=== PATIENT | female | born 1955 | race Caucasian/White ===

== ENCOUNTER 2025-02-18 11:23 | Emergency (ER) | payer MEDICARE | END 2025-02-18 13:23 | disposition home or self-care (01) | LOC: CSHERS 11:23 | DX: J18.9 Pneumonia, unspecified organism (principal); I10 Essential (primary) hypertension; Z79.899 Other long term (current) drug therapy; J20.9 Acute bronchitis, unspecified | CPT/HCPCS: 71045; 71046; 93005; 93010; J7512 ==

== ENCOUNTER 2025-02-20 04:50 | Emergency (ER) | payer MEDICARE | END 2025-02-20 06:18 | disposition home or self-care (01) | LOC: CSHERS 04:50 | DX: J18.9 Pneumonia, unspecified organism (principal); I45.10 Unspecified right bundle-branch block; I10 Essential (primary) hypertension; Z79.899 Other long term (current) drug therapy | CPT/HCPCS: 71046; 93005 ==

== ENCOUNTER 2025-02-21 23:15 | Inpatient (IN) | payer MEDICARE ==
[~2025-02-21 23:15] MED LIST: Iopamidol 370 76% 100 ML VIAL ONE
[2025-02-21 23:48] LABS: #Basophils 0.07 10x3/uL (0.0-0.2); #Eosinophils 0.10 10x3/uL (0.0-0.5); #Monocytes 0.75 10x3/uL (0.0-1.1); #Neutrophils 7.94 10x3/uL (1.5-8.4); %Basophils 0.7 % (0.0-2.0); %Eosinophils 1.0 % (0.0-6.0); %Lymphocytes 15.3 % (18.0-47.0); %Monocytes 7.1 % (0.0-10.0); %Neutrophils 75.7 % (40.0-75.0); Hematocrit 42.9 % (34.9-44.5); Hemoglobin 14.5 g/dL (12.0-15.5); Mean Corpuscular Hemoglobin 27.5 pg (27.0-33.0); Mean Corpuscular Volume 81.3 fL (81.6-98.3); Platelet Count 277 10x3/uL (150-450); Red Blood Cell (RBC) Count 5.28 10x6/uL (3.90-5.03); White Blood Cell (WBC) Count 10.49 10x3/uL (3.5-10.5)
[2025-02-22 00:23] LABS: ALT (SGPT) 43 U/L (Less than 34); AST (SGOT) 36 U/L (11-34); Albumin 4.1 g/dL (3.1-4.5); Alkaline Phosphatase 61 U/L (40-110); Anion Gap 13 mmol/L (10-20); BUN (Urea Nitrogen) 8 mg/dL (9.8-20.1); Bilirubin, Total 0.8 mg/dL (0.3-1.2); Calc. Creatinine Clearance 0 mL/min (70-130); Calcium 9.3 mg/dL (7.8-10.44); Carbon Dioxide 25 mmol/L (23-31); Chloride 103 mmol/L (98-107); Globulin 3.3 g/dL (2.4-3.5); Glucose 117 mg/dL (83-110); Potassium 3.3 mmol/L (3.5-5.1); Sodium 138 mmol/L (136-145)
[2025-02-22 00:27] LABS: Troponin I 0.047 ng/mL (< 0.028)
[2025-02-22] MEDS ORDERED: Potassium Bicarbonate/Cit Ac 20 MEQ TAB ONE (01:26)
[2025-02-22] MEDS ORDERED: Acetaminophen 325 MG TAB PO PRN (01:50)
[2025-02-22] MEDS ORDERED: Ondansetron PF 4 MG/2 ML Vial IVP PRN (01:50)
[2025-02-22 02:46] VITALS: BMI 35.4
[2025-02-22 04:09] LABS: #Basophils 0.04 10x3/uL (0.0-0.2); #Eosinophils 0.11 10x3/uL (0.0-0.5); #Monocytes 0.66 10x3/uL (0.0-1.1); #Neutrophils 7.42 10x3/uL (1.5-8.4); %Basophils 0.4 % (0.0-2.0); %Eosinophils 1.1 % (0.0-6.0); %Lymphocytes 18.4 % (18.0-47.0); %Monocytes 6.5 % (0.0-10.0); %Neutrophils 73.3 % (40.0-75.0); Hematocrit 42.6 % (34.9-44.5); Hemoglobin 14.2 g/dL (12.0-15.5); Mean Corpuscular Hemoglobin 27.0 pg (27.0-33.0); Mean Corpuscular Volume 81.0 fL (81.6-98.3); Platelet Count 261 10x3/uL (150-450); Red Blood Cell (RBC) Count 5.26 10x6/uL (3.90-5.03); White Blood Cell (WBC) Count 10.12 10x3/uL (3.5-10.5)
[2025-02-22 04:26] LABS: ALT (SGPT) 43 U/L (Less than 34); AST (SGOT) 35 U/L (11-34); Albumin 4.0 g/dL (3.1-4.5); Alkaline Phosphatase 59 U/L (40-110); Anion Gap 13 mmol/L (10-20); BUN (Urea Nitrogen) 8 mg/dL (9.8-20.1); Bilirubin, Total 0.8 mg/dL (0.3-1.2); Calc. Creatinine Clearance 85 mL/min (70-130); Calcium 9.2 mg/dL (7.8-10.44); Carbon Dioxide 25 mmol/L (23-31); Chloride 103 mmol/L (98-107); Globulin 3.1 g/dL (2.4-3.5); Glucose 119 mg/dL (83-110); Potassium 3.5 mmol/L (3.5-5.1); Sodium 137 mmol/L (136-145)
[2025-02-22 04:32] LABS: Troponin I 0.037 ng/mL (< 0.028)
[2025-02-22] MEDS: PNEUMOC 20-VAL CONJ-DIP CRM/PF 0.5 ML SYRINGE IM ONE (05:39)
[2025-02-22] MEDS: Enoxaparin 40 MG (0.4 mL) SYRINGE SC SCH (08:44)
[2025-02-22] MEDS: Pantoprazole 40 MG DR.TAB PO SCH (08:44)
[2025-02-22] MEDS: cefTRIAXone\\ROCEPHIN 1 GM in Sodium Chloride 0.9% 100 ML IVPB SCH (08:44)
[2025-02-22] MEDS ORDERED: Artificial Tear Ophth Sol 15 ML BOT EA EYE PRN (08:48)
[2025-02-22] MEDS: Carvedilol 25 MG TAB PO SCH (08:57)
[2025-02-22] MEDS ORDERED: Famotidine 20 MG TAB PO SCH (09:00)
[2025-02-22] MEDS ORDERED: Famotidine/PF 20 mg/2ml Vial SLOW IVP SCH (09:00)
[2025-02-22] MEDS: Divalproex Sodium DR 500 MG TAB PO SCH (09:23)
[2025-02-22 15:02] LABS: Troponin I 0.037 ng/mL (< 0.028)
[2025-02-22] MEDS ORDERED: Sodium Chloride For Inhalation 0.9% 3 ML NEB NEB PRN (15:22)
[2025-02-22] MEDS: predniSONE 20 MG TAB PO SCH (16:45)
[2025-02-22] MEDS ORDERED: Albuterol 2.5 MG (3 mL) NEB NEB PRN (19:00)
[2025-02-23 03:44] LABS: #Basophils Less than 0.03 10x3/uL (0.0-0.2); #Eosinophils Less than 0.03 10x3/uL (0.0-0.5); #Monocytes 0.35 10x3/uL (0.0-1.1); #Neutrophils 10.28 10x3/uL (1.5-8.4); %Basophils 0.1 % (0.0-2.0); %Eosinophils 0.1 % (0.0-6.0); %Lymphocytes 9.2 % (18.0-47.0); %Monocytes 3.0 % (0.0-10.0); %Neutrophils 87.2 % (40.0-75.0); Hematocrit 41.5 % (34.9-44.5); Hemoglobin 13.9 g/dL (12.0-15.5); Mean Corpuscular Hemoglobin 27.1 pg (27.0-33.0); Mean Corpuscular Volume 81.1 fL (81.6-98.3); Platelet Count 270 10x3/uL (150-450); Red Blood Cell (RBC) Count 5.12 10x6/uL (3.90-5.03); White Blood Cell (WBC) Count 11.78 10x3/uL (3.5-10.5)
[2025-02-23 04:05] LABS: Anion Gap 13 mmol/L (10-20); BUN (Urea Nitrogen) 11 mg/dL (9.8-20.1); Calc. Creatinine Clearance 80 mL/min (70-130); Calcium 9.3 mg/dL (7.8-10.44); Carbon Dioxide 26 mmol/L (23-31); Chloride 103 mmol/L (98-107); Glucose 160 mg/dL (83-110); Potassium 3.8 mmol/L (3.5-5.1); Sodium 138 mmol/L (136-145)
[2025-02-23] MEDS: predniSONE 20 MG TAB PO SCH (08:13)
[2025-02-23 08:59] VITALS: TEMP 97
[2025-02-23 12:49] VITALS: BP 125/67
== END 2025-02-23 14:39 | disposition home or self-care (01) | DRG 202 ==
LOC: CSHERS 23:15 → CSHTELE 02-22 01:50 → OBSVTOIN 02-22 15:20
PROVIDERS: ADMIT Internal Medicine; ATTEND Internal Medicine
PROC: 3E03329 Introduction of Other Anti-infective into Peripheral Vein, Percutaneous Approach (ICD-10-PCS; principal; 2025-02-22)
PROC: 3E0234Z Introduction of Serum, Toxoid and Vaccine into Muscle, Percutaneous Approach (ICD-10-PCS; 2025-02-22)
DX: J20.9 Acute bronchitis, unspecified (principal); J18.9 Pneumonia, unspecified organism; I24.89 Other forms of acute ischemic heart disease; M81.0 Age-related osteoporosis without current pathological fracture; I10 Essential (primary) hypertension; E89.0 Postprocedural hypothyroidism; E89.2 Postprocedural hypoparathyroidism; F41.9 Anxiety disorder, unspecified; K21.9 Gastro-esophageal reflux disease without esophagitis; F31.9 Bipolar disorder, unspecified; F20.9 Schizophrenia, unspecified; Z98.890 Other specified postprocedural states; Z90.710 Acquired absence of both cervix and uterus; Z79.51 Long term (current) use of inhaled steroids; Z88.5 Allergy status to narcotic agent; Z88.8 Allergy status to other drugs, medicaments and biological substances; Z79.899 Other long term (current) drug therapy; Z79.890 Hormone replacement therapy; Z88.2 Allergy status to sulfonamides; Z88.1 Allergy status to other antibiotic agents; E66.811 Obesity, class 1; Z68.35 Body mass index [BMI] 35.0-35.9, adult; Z23 Encounter for immunization
CPT/HCPCS: 36415; 71275; 80048; 80053; 83880; 84484; 85025; 85379; 87426; 93005; 93306; 96372; 96374; 96375; G0378; J0696; J1650; J2919; J7512; Q9967